=== PATIENT | male | born 1950 | race Caucasian/White ===

== ENCOUNTER 2017-04-20 06:41 | Day surgery (SDC) | payer MEDICARE, OTHER ==
[2017-04-20] MEDS ORDERED: SOD CHLORIDE 0.9% 1,000 ML IV (07:00)
[2017-04-20] MEDS ORDERED: morphine 2 MG INJ IV (09:00)
[2017-04-20] MEDS ORDERED: OXYCODONE/ACETAMINOPHEN (5/325) TAB PO (09:00)
[2017-04-20] MEDS ORDERED: ONDANSETRON 4 MG INJ IV (09:00)
[2017-04-20] MEDS: LIDOCAINE 1%/EPI 30 ML INJ (09:56)
[2017-04-20] MEDS ORDERED: ROCURONIUM 50 MG INJ (10:55)
[2017-04-20] MEDS ORDERED: LIDOCAINE 1% (MDV) 20 ML INJ (10:55)
[2017-04-20] MEDS ORDERED: MIDAZOLAM 1 MG/ML 2 ML INJ (10:55)
[2017-04-20] MEDS ORDERED: FENTAnyl 50 MCG/ML VIAL (10:55)
== END 2017-04-20 12:00 | disposition home or self-care (01) ==
LOC: SDS 06:41
DX: L57.8 Other skin changes due to chronic exposure to nonionizing radiation (principal); Z85.89 Personal history of malignant neoplasm of other organs and systems
CPT/HCPCS: 14060; 71045; 88307; 88331